=== PATIENT | female | born 1940 | race Caucasian/White ===

== ENCOUNTER → 2016-10-06 | Outpatient (CLI) | payer MEDICARE, BC ==
[~2016-10-06] MED LIST: ADVAIR 2501 DISK W/D PO; ALBUTEROL17 G1 IH; ALBUTEROL17 GM INH; ALLEGRA180 MG PO; AMBIEN PO; AMBIEN10 MG PO; AMITRIPTYLINE H50 MG PO; CALCIUM CARBON650 M1 PO; CENTRUM SILVER PO; CLONAZEPAM0.5 MG PO; COUMADIN5 MG PO; COUMADIN6 MG PO; CRESTOR10 MG; CRESTOR10 MG PO; CRESTOR5 MG PO; DEXFOL PO; DICLOFENAC PO; DICLOFENAC SOD100 MG PO; DICLOFENAC SODI50 MG PO; DOCUSATE SODIU100 MG PO; DOXYCYCLINE150 MG PO; FISH OIL 1,0001 CAP PO; FLEXERIL PO; FLEXERIL10 M1 PO; FLEXERIL10 MG PO; FLONASE16 GM; GLUCOPHAGE XR500 MG PO; GLUCOPHAGE500 MG PO; HUMALOG100 U/ML SUBQ; HYDROCODON-ACE1 EAC4 PO; KLONOPIN PO; KLONOPIN0.5 MG PO; LASIX20 MG PO; LEVOTHROID50 MCG PO; LEVOTHYROXINE50 MCG PO; LISINOPRIL10 MG PO; LISINOPRIL2.5 MG PO; LISINOPRIL20 MG PO; LISINOPRIL5 MG PO; LORTAB 10-5001 EACH PO; METFORMIN HCL500 M1 PO; METOPROLOL SUCC50 MG PO; MIRALAX17 GM PO; MYSOLINE50 M1 PO; MYSOLINE50 MG; MYSOLINE50 MG PO; OMEPRAZOLE20 M1 PO; OMEPRAZOLE20 M2 PO; OXYCODONE HCL20 M1 PO; OXYCODONE-ACET1 EAC1 PO; OXYCONTIN10 MG PO; PERCOCET 10/3251 TAB PO; PERCOCET 7.5-31 EACH PO; PERCOCET10 PO; PREMARIN VAG CR45 GM; PREMARIN VAG CR45 GM MC; PREMARIN VAG CR45 GM VAG; PRILOSEC20 MG PO; PRIMADONE PO; PRIMIDONE50 MG PO; PROPRANOLOL HCL40 M1 PO; PROVERA VAG; SYNTHROID PO; SYNTHROID0.05 MG PO; TOPROL XL 50 MG50 MG PO; TOPROL XL PO; TYLENOL325 M1 PO; VAGIFEM10 MCG; VAGIFEM10 MCG VG; VICODIN 5/500 T1 TAB PO; VOLTAREN-XR100 M1 PO; ZESTORETIC 20/21 TAB PO; ZESTRIL5 MG PO; ZOLPIDEM TARTRA10 MG PO
--- NOTE | ~2016-10-06 | MY11 ---
[facility] A Service of [facility] & [facility] RADIOLOGY TEXT RESULTS PATIENT: DOMINICK SOSA LOCATION: [facility] : 40 UNIT #: [id number] AGE: [address]: Anand Das MD SEX: F ORDER DR: [id number] [address] [id number] O MR#: [id number] Acc #: [id number] NAME: DOMINICK SOSA : 1940 SEX: F STUDY DATE/TIME: 10/06/2016 14:38 UNIT: [facility] ROOM: STUDY DESCRIPTION: MY Mammogram Screening Dig Quan Attending Physician: Anand Das M.D. Referring Physician: Anand Das M.D. Ordering Physician: Anand Das M.D. Primary Care Physician: Anand Das M.D. MEDICAL IMAGING REPORT This report is preliminary unless electronic signature is present. EXAM Digital screening mammogram 10/06/2016 HISTORY 76-year-old woman, no risk elevation. Annual screen. COMPARISON STUDIES Mammograms date to 09/13/2006 with most recent screening comparison 09/03/2015 FINDINGS Digital imaging of each breast was completed utilizing a two-view examination of each breast in craniocaudal and mediolateral-oblique projections. Review and interpretation of digital mammograms include a second review in conjunction with FDA-approved CAD device. There is a normal parenchymal presentation bilaterally consistent with the patient's age. There are no breast masses imaged and no parenchymal asymmetry is visualized. There are no suspicious microcalcifications and I see no focal architectural disturbance. IMPRESSION Negative screening digital mammogram. One-year followup recommended. Patients over the age of 40 are entered into a reminder system with target due date for the next mammogram. A result letter will also be sent to the patient. BIRADS: 1 Negative ADDENDUM Breast parenchyma is fatty replaced [facility] A Service of [facility] RADIOLOGY TEXT RESULTS PATIENT: DOMINICK SOSA LOCATION: [facility] : 40 UNIT #: [id number] AGE: [address]: Anand Das MD SEX: F ORDER DR: Dictated by... Anup Zazueta M.D. THIS IS AN ELECTRONICALLY VERIFIED REPORT Anup Zazueta M.D. at 10/10/2016 9:43 AM Keshia TD: 10/06/2016 16:40 JOB #: [id number] MEDICAL IMAGING REPORT Page 1 of 1
== END | disposition home or self-care (01) ==
LOC: SMAM 13:58
DX: Z12.31 Encounter for screening mammogram for malignant neoplasm of breast (principal)
CPT/HCPCS: G0202